=== PATIENT | female | born 1960 ===

== ENCOUNTER 2018-05-19 08:25 | Outpatient (CLI) | payer OTHER ==
[~2018-05-19] VITALS: Ht 162.6 cm; Wt 86.2 kg
== END 2018-05-19 08:40 | disposition home or self-care (01) ==
LOC: OFIC 805 08:25
DX: R49.1 Aphonia (principal); H61.23 Impacted cerumen, bilateral; Z43.0 Encounter for attention to tracheostomy; Z93.0 Tracheostomy status; Z86.73 Personal history of transient ischemic attack (TIA), and cerebral infarction without residual deficits

== ENCOUNTER 2018-06-23 09:18 | Outpatient (CLI) | payer OTHER ==
[~2018-06-23] VITALS: Ht 152.4 cm; Wt 86.2 kg
== END 2018-06-23 09:40 | disposition home or self-care (01) ==
LOC: OFIC 805 09:18
DX: R49.1 Aphonia (principal); Z43.0 Encounter for attention to tracheostomy; Z93.0 Tracheostomy status

== ENCOUNTER 2018-08-25 09:16 | Outpatient (CLI) | payer OTHER ==
[~2018-08-25] VITALS: Ht 152.4 cm; Wt 81.6 kg
== END 2018-08-25 09:35 | disposition home or self-care (01) ==
LOC: OFIC 805 09:16
DX: Z43.0 Encounter for attention to tracheostomy (principal); I69.391 Dysphagia following cerebral infarction; Z93.0 Tracheostomy status

== ENCOUNTER 2018-11-24 09:05 | Outpatient (CLI) | payer OTHER ==
[~2018-11-24] VITALS: Ht 152.4 cm; Wt 81.6 kg
== END 2018-11-24 09:20 | disposition home or self-care (01) ==
LOC: OFIC 805 09:05
DX: Z93.0 Tracheostomy status (principal); I69.391 Dysphagia following cerebral infarction

== ENCOUNTER 2019-01-18 10:15 | Emergency (ER) | payer OTHER ==
[~2019-01-18] VITALS: Ht 157.5 cm; Wt 81.6 kg
[2019-01-18] MEDS ORDERED: IRBESARTAN300 MG PO (10:47)
[2019-01-18] MEDS ORDERED: HYDRALAZINE HC100 MG PO (10:47)
[2019-01-18] MEDS ORDERED: PAXIL20 MG PO (10:48)
[2019-01-18] MEDS ORDERED: SYNTHROID50 MCG PO (10:48)
[2019-01-18] MEDS ORDERED: AMLODIPINE BESY10 MG PO (10:48)
[2019-01-18] MEDS ORDERED: HUMALOG100 UNIT/1 SQ (10:49)
[2019-01-18] MEDS ORDERED: LANTUS SOL100 UNIT/1 SUBCUTANEO (10:49)
== END 2019-01-18 19:25 | disposition home or self-care (01) ==
LOC: ER 10:15 → CPU-OBS 10:45 → ER 10:46
DX: R11.11 Vomiting without nausea (principal); K59.09 Other constipation; R68.89 Other general symptoms and signs; I10 Essential (primary) hypertension; E11.9 Type 2 diabetes mellitus without complications; I25.2 Old myocardial infarction; Z93.0 Tracheostomy status; R56.9 Unspecified convulsions
CPT/HCPCS: G0378; G0379; 93005; 82805; 36600; 70450

== ENCOUNTER 2019-03-23 09:27 | Outpatient (CLI) | payer OTHER ==
[~2019-03-23] VITALS: Ht 152.4 cm; Wt 79.4 kg
[~2019-03-23 09:27] MED LIST: AMLODIPINE BESY10 MG PO; HUMALOG100 UNIT/1 SQ; HYDRALAZINE HC100 MG PO; IRBESARTAN300 MG PO; LANTUS SOL100 UNIT/1 SUBCUTANEO; PAXIL20 MG PO; SYNTHROID50 MCG PO
== END 2019-03-23 09:50 | disposition home or self-care (01) ==
LOC: OFIC 805 09:27
DX: J31.0 Chronic rhinitis (principal); Z43.0 Encounter for attention to tracheostomy; R49.1 Aphonia; I63.89 Other cerebral infarction; I69.821 Dysphasia following other cerebrovascular disease